=== PATIENT | male | born 1970 | race Caucasian/White ===

== ENCOUNTER 2020-07-01 22:58 | Emergency (ER) | payer BC ==
[~2020-07-01 22:58] MED LIST: CLEOCIN HCL300 MG PO; NORCO 5-325 TA1 EACH PO; ROBITUSSIN100 MG/51 PO; SUDOGEST PE10 MG PO
[2020-07-01 23:46] LABS: HEMOGLOBIN 15.7 gm/dl (14.0-17.5); RED BLOOD COUNT 5.46 M/UL (4.20-5.50); WHITE BLOOD COUNT 10.6 K/UL (4.5-11.0)
[2020-07-02 00:13] LABS: BUN/CREATININE RATIO 16 (0-10)
[2020-07-02] MEDS ORDERED: PEPCID20 MG PO (03:19)
== END 2020-07-02 03:49 | disposition home or self-care (01) ==
LOC: ER1 22:58
PROVIDERS: Student in an Organized Health Care Education/Training Program
DX: K21.9 Gastro-esophageal reflux disease without esophagitis (principal); I49.3 Ventricular premature depolarization; F17.210 Nicotine dependence, cigarettes, uncomplicated; Z20.822 Contact with and (suspected) exposure to COVID-19
CPT/HCPCS: 0240U; 71045; 80053; 81001; 82550; 82553; 83605; 83690; 83874; 83880; 84484; 85025; 85379; 93005; 96374; 99285